=== PATIENT | female | born 1995 | race Caucasian/White ===

== ENCOUNTER 2021-09-22 11:44 | Emergency (ER) | payer OTHER ==
[~2021-09-22] VITALS: Ht 160 cm; Wt 68.0 kg
[2021-09-22] MEDS ORDERED: AUGMENTIN 875-1 EACH PO (13:04)
== END 2021-09-22 13:11 | disposition home or self-care (01) ==
LOC: FSED 11:50
DX: S30.870A Other superficial bite of lower back and pelvis, initial encounter (principal); W54.0XXA Bitten by dog, initial encounter; Y93.01 Activity, walking, marching and hiking; Y92.488 Other paved roadways as the place of occurrence of the external cause
CPT/HCPCS: 99283